=== PATIENT | male | born 1990 | race African-American/Black ===

== ENCOUNTER 2020-06-11 07:30 | Inpatient (IN) | payer MEDICAID ==
[~2020-06-11] VITALS: Ht 182.9 cm; Wt 82.1 kg
[2020-06-11] MEDS ORDERED: INFLUENZA VIRUS VACCINE QVS 2020-21 (6MO+)/PF 60 MCG/0.5 ML SYRINGE IM ONE (11:30)
[2020-06-11] MEDS ORDERED: DOCUSATE SODIUM 100 MG CAPSULE PO PRN (13:30)
[2020-06-11] MEDS ORDERED: MAG HYDROX/AL HYDROX/SIMETH ES 30 ML SUSPENSION UDCUP PO PRN (13:30)
[2020-06-11] MEDS ORDERED: ALBUTEROL SULFATE HFA 90 MCG/PUFF 8 GM INHALER IH PRN (13:30)
[2020-06-11] MEDS ORDERED: LOPERAMIDE HCL 2 MG CAPSULE PO PRN (13:30)
[2020-06-11] MEDS ORDERED: IBUPROFEN 400 MG TABLET PO PRN (13:30)
[2020-06-11] MEDS ORDERED: PETROLATUM,WHITE 28 GM JELLY TP PRN (13:30)
[2020-06-11] MEDS ORDERED: ACETAMINOPHEN 325 MG TABLET PO PRN (13:30)
[2020-06-11] MEDS ORDERED: ONDANSETRON HCL 4 MG TABLET PO PRN (13:30)
[2020-06-11] MEDS ORDERED: MAGNESIUM HYDROXIDE SUSPENSION 30 ML UDCUP PO PRN (13:30)
[2020-06-11] MEDS ORDERED: NICOTINE 14 MG/24 HOUR PATCH TD PRN (13:30)
[2020-06-11] MEDS ORDERED: CloNIDine HCL 0.1 MG TABLET PO PRN (13:30)
[2020-06-11] MEDS ORDERED: GuaiFENesin/D-METHORPHAN [SUGAR-FREE] 200-20MG/10 ML SYRUP UDCUP PO PRN (13:30)
[2020-06-11] MEDS: BuPROPion HCL XL 150 MG ER TABLET PO SCH (14:10)
[2020-06-11] MEDS: LORazepam 2 MG TABLET PO PRN (14:11)
[2020-06-11] MEDS: MetroNIDAZOLE 500 MG TABLET PO SCH ×2 (16:54→17:00)
[2020-06-11] MEDS: OLANZapine 5 MG TABLET PO SCH (22:16)
[2020-06-12 05:17] VITALS: BP 128/79
[2020-06-12 08:45] VITALS: BP 100/60
[2020-06-12] MEDS: BuPROPion HCL XL 150 MG ER TABLET PO SCH (08:59)
[2020-06-12] MEDS: MetroNIDAZOLE 500 MG TABLET PO SCH ×3 (08:59→16:37)
[2020-06-12] MEDS: OLANZapine 5 MG TABLET PO SCH ×2 (08:59→16:36)
[2020-06-12] MEDS: LORazepam 2 MG TABLET PO PRN ×3 (09:58→16:37)
[2020-06-12 16:25] VITALS: BP 105/62
[2020-06-13 05:39] VITALS: BP 117/68
[2020-06-13] MEDS: MetroNIDAZOLE 500 MG TABLET PO SCH ×3 (09:10→16:20)
[2020-06-13] MEDS: BuPROPion HCL XL 150 MG ER TABLET PO SCH (09:10)
[2020-06-13] MEDS: OLANZapine 5 MG TABLET PO SCH ×2 (09:10→16:20)
[2020-06-13 09:25] VITALS: BP 119/67
[2020-06-13 16:16] VITALS: BP 109/65
[2020-06-14 05:09] VITALS: BP 129/77
[2020-06-14] MEDS: OLANZapine 5 MG TABLET PO SCH ×2 (08:09→16:26)
[2020-06-14] MEDS: BuPROPion HCL XL 150 MG ER TABLET PO SCH (08:09)
[2020-06-14] MEDS: MetroNIDAZOLE 500 MG TABLET PO SCH ×3 (08:09→16:26)
[2020-06-14 08:48] VITALS: BP 136/81
[2020-06-14 09:47] LABS: BASOPHILS % (AUTO) 0.6 % (0.0-2.0); EOSINOPHILS % (AUTO) 4.5 % (1.0-6.0); HEMATOCRIT 39.8 % (41-53); HEMOGLOBIN 13.2 g/dL (13.5-17.5); LYMPHOCYTES # (AUTO) 2.6 K/uL (1.0-4.8); LYMPHOCYTES % (AUTO) 38.4 % (22.0-44.0); MEAN CORPUSCULAR HEMOGLOBIN 30.6 pg (26.0-34.0); MEAN CORPUSCULAR HGB CONC 33.2 G/dL (31.0-37.0); MEAN CORPUSCULAR VOLUME 92 fL (80-100); MONOCYTES # (AUTO) 0.4 K/uL (0.1-1.0); MONOCYTES % (AUTO) 6.5 % (2.0-9.0); NEUTROPHILS # (AUTO) 3.3 K/uL (1.8-7.7); PLATELET COUNT (AUTO) 228 K/uL (150-450); RED BLOOD CELL COUNT(AUTO) 4.32 MIL/uL (4.50-5.90); RED CELL DISTRIBUTION WIDTH 13.9 % (11.5-14.5)
[2020-06-14 10:03] LABS: HEMOGLOBIN A1C 4.7 % (3.8-5.6)
[2020-06-14 10:39] LABS: ALANINE AMINOTRANSFERASE 56 U/L (12-78); ALBUMIN 3.6 g/dL (3.4-5.0); ALKALINE PHOSPHATASE 81 U/L (46-116); ANION GAP 14 mmol/L (8-16); ASPARTATE AMINOTRANSFERASE 24 U/L (15-37); BILIRUBIN,TOTAL 0.2 mg/dL (0.1-1.0); CALCIUM, TOTAL 8.9 mg/dL (8.8-10.5); CARBON DIOXIDE 23 mmol/L (22-29); CHLORIDE 102 mmol/L (98-107); CHOL/HDL RATIO 2.6 (4.2-7.3); CHOLESTEROL 150 mg/dL (131-200); CREATININE 1.03 mg/dL (0.60-1.30); GLOMERULAR FILTR. RATE CALC > 60 mL/min (>60); GLUCOSE,RANDOM 126 mg/dL (70-110); HDL CHOLESTEROL 57 mg/dL (40-60); LDL CHOL (CALC.) 76 mg/dL (0-130); POTASSIUM 3.9 mmol/L (3.5-5.1); SODIUM SERUM 139 mmol/L (136-145); THYROID STIMULATING HORMONE 2.07 uIU/mL (0.36-3.74); TRIGLYCERIDES 86 mg/dL (15-150); UREA NITROGEN, BLOOD 6 mg/dL (7-18)
[2020-06-14 16:22] VITALS: BP 112/62
[2020-06-14] MEDS: ZOLPIDEM TARTRATE 10 MG TABLET PO PRN (21:56)
[2020-06-15 04:21] VITALS: BP 110/60
[2020-06-15 08:08] VITALS: BP 114/64
[2020-06-15] MEDS: MetroNIDAZOLE 500 MG TABLET PO SCH ×3 (09:02→16:36)
[2020-06-15] MEDS: OLANZapine 5 MG TABLET PO SCH ×2 (09:02→16:36)
[2020-06-15] MEDS: BuPROPion HCL XL 150 MG ER TABLET PO SCH (09:02)
[2020-06-15 16:18] VITALS: BP 140/82
[2020-06-15] MEDS: LORazepam 2 MG TABLET PO PRN (19:03)
[2020-06-16 00:46] VITALS: BP 129/74
[2020-06-16 08:34] VITALS: BP 118/66
[2020-06-16] MEDS: BuPROPion HCL XL 150 MG ER TABLET PO SCH (09:29)
[2020-06-16] MEDS: OLANZapine 5 MG TABLET PO SCH ×2 (09:29→17:29)
[2020-06-16] MEDS: MetroNIDAZOLE 500 MG TABLET PO SCH ×3 (09:30→17:28)
[2020-06-16] MEDS: LORazepam 2 MG TABLET PO PRN ×2 (09:32→17:57)
[2020-06-16 16:28] VITALS: BP 114/70
[2020-06-16] MEDS: HALOPERIDOL 5 MG TABLET PO PRN (17:56)
[2020-06-17 03:34] VITALS: BP 116/76
[2020-06-17 09:10] VITALS: BP 117/71
[2020-06-17] MEDS: MetroNIDAZOLE 500 MG TABLET PO SCH ×3 (09:56→17:08)
[2020-06-17] MEDS: MULTIVITAMINS WITH IRON TABLET PO SCH (09:56)
[2020-06-17] MEDS: BuPROPion HCL XL 150 MG ER TABLET PO SCH (09:56)
[2020-06-17] MEDS: LORazepam 2 MG TABLET PO PRN ×2 (09:56→17:24)
[2020-06-17] MEDS: OLANZapine 5 MG TABLET PO SCH ×2 (10:36→17:08)
[2020-06-17 16:34] VITALS: BP_SYST 116; BP_SYST 166; BP_DIAS 66
[2020-06-17] MEDS: HALOPERIDOL 5 MG TABLET PO PRN (17:24)
[2020-06-18 00:59] VITALS: BP 120/70
[2020-06-18 08:49] VITALS: BP 121/68
[2020-06-18] MEDS: BuPROPion HCL XL 150 MG ER TABLET PO SCH (09:53)
[2020-06-18] MEDS: OLANZapine 5 MG TABLET PO SCH ×2 (09:53→18:17)
[2020-06-18] MEDS: MetroNIDAZOLE 500 MG TABLET PO SCH ×2 (09:53→13:00)
[2020-06-18] MEDS: MULTIVITAMINS WITH IRON TABLET PO SCH (09:53)
[2020-06-18 17:13] VITALS: BP 120/77
[2020-06-18] MEDS: ZOLPIDEM TARTRATE 10 MG TABLET PO PRN (21:12)
[2020-06-19 02:58] VITALS: BP 116/70
[2020-06-19] MEDS: MULTIVITAMINS WITH IRON TABLET PO SCH (08:39)
[2020-06-19] MEDS: OLANZapine 5 MG TABLET PO SCH ×2 (08:39→17:39)
[2020-06-19] MEDS: LORazepam 2 MG TABLET PO PRN ×2 (08:39→17:39)
[2020-06-19 08:41] VITALS: BP 114/63
[2020-06-19] MEDS: HALOPERIDOL 5 MG TABLET PO PRN ×2 (08:41→17:39)
[2020-06-19] MEDS: BuPROPion HCL XL 150 MG ER TABLET PO SCH (08:42)
[2020-06-19 16:25] VITALS: BP 108/62
[2020-06-20 05:33] VITALS: BP 118/72
[2020-06-20 08:14] VITALS: BP 112/64
[2020-06-20] MEDS: MULTIVITAMINS WITH IRON TABLET PO SCH (09:44)
[2020-06-20] MEDS: BuPROPion HCL XL 150 MG ER TABLET PO SCH (09:44)
[2020-06-20] MEDS: OLANZapine 5 MG TABLET PO SCH ×2 (09:44→16:39)
[2020-06-20] MEDS: LORazepam 2 MG TABLET PO PRN ×2 (09:45→16:39)
[2020-06-20 16:17] VITALS: BP 104/65
[2020-06-21 01:09] VITALS: BP 118/64
[2020-06-21] MEDS: OLANZapine 5 MG TABLET PO SCH ×2 (08:45→17:45)
[2020-06-21] MEDS: MULTIVITAMINS WITH IRON TABLET PO SCH (08:45)
[2020-06-21] MEDS: BuPROPion HCL XL 150 MG ER TABLET PO SCH (08:45)
[2020-06-21 08:54] VITALS: BP 137/82
[2020-06-21 16:18] VITALS: BP 115/66
[2020-06-21] MEDS: ZOLPIDEM TARTRATE 10 MG TABLET PO PRN (21:47)
[2020-06-22 04:44] VITALS: BP 132/71
[2020-06-22 08:26] VITALS: BP 136/73
[2020-06-22] MEDS: MULTIVITAMINS WITH IRON TABLET PO SCH (08:56)
[2020-06-22] MEDS: BuPROPion HCL XL 150 MG ER TABLET PO SCH (08:56)
[2020-06-22] MEDS: OLANZapine 5 MG TABLET PO SCH ×2 (08:56→16:38)
[2020-06-22] MEDS ORDERED: OLAN5TAB2 PO (17:26)
[2020-06-22] MEDS ORDERED: BUPR-93 PO (17:26)
[2020-06-22 17:27] VITALS: BP 129/68
== END 2020-06-22 18:29 | disposition home or self-care (01) | DRG 751 ==
LOC: B3A 09:21
PROVIDERS: ADMIT Psychiatry & Neurology Psychiatry; ATTEND Psychiatry & Neurology Psychiatry
DX: F33.2 Major depressive disorder, recurrent severe without psychotic features (principal); R45.851 Suicidal ideations; I10 Essential (primary) hypertension; F19.10 Other psychoactive substance abuse, uncomplicated; F41.9 Anxiety disorder, unspecified; R45.850 Homicidal ideations; R44.0 Auditory hallucinations; Z59.0 Homelessness; Z91.14 Patient's other noncompliance with medication regimen
CPT/HCPCS: 83036; 84436; 84439; 84443; 90686